=== PATIENT | female | born 1960 | race African-American/Black ===

== ENCOUNTER 2017-08-29 08:15 | Emergency (ER) | payer OTHER ==
[~2017-08-29] VITALS: Ht 165.1 cm; Wt 63.5 kg
--- NOTE | ~2017-08-29 | EKG ---
[address] [place] [address] ELECTROCARDIOGRAM REPORT Name: KRISTIE KRAUS Room #: [facility] Eastman#: [id number] Admission: 08/29/17 Attend Phys: Discharge: 08/29/17 Date of : 60 Report #: [id number] THIS REPORT FOR: //name// [facility] ED Test Date: 2017-08-29 Test Time: 09:47:35 Pat Name: KRISTIE KRAUS Department: Room: Gender: F [employer] Cl[employer]: lizzy : 1960 Requested By: Geraldine Herrera Order Number: [id number] MD: Edenilson Hernandez Measurements Intervals [place] Rate: 69 P: 58 WY: 136 QRS: 9 QRSD: 75 T: 33 QT: 410 QTc: 440 Interpretive Statements Sinus rhythm Left ventricular hypertrophy Minimal ST elevation, anterolateral leads Baseline wander in lead(s) II,III,aVF Compared to ECG 02/11/2012 18:28:06 Left ventricular hypertrophy now present ST (T wave) deviation now present Electronically Signed On 08-29-2017 14:12:20 CDT by Edenilson Hernandez [email or web address] <ELECTRONICALLY SIGNED> By: Edenilson Hernandez MD 08/29/17 1412 0947 Edenilson Hernandez MD /EPI
[~2017-08-29 08:15] MED LIST: ACETAMINOPHEN-1 EAC1 PO; ARIMIDEX PO; ASPIR 8181 MG PO; AVELOX 400 MG400 MG PO; BACLOFEN 10MG T10 M1 PO; BACLOFEN20 MG PO; CALCIUM 500 +1 EAC5 PO; DOXYCYCLINE 10100 MG PO; HYDROCODON-ACE1 EAC7 PO; HYDROCODONE-AP1 EAC6 PO; IBUPROFEN 200200 M1 PO; IBUPROFEN 800800 M1 PO; KEFLEX500 M1 PO; LEVAQUIN 500 M500 M2 PO; NAPROSYN500 MG PO; NORCO 5-325 TA1 EACH PO; ONDANSETRON HCL4 M2 PO; PRAVASTATIN SOD10 MG PO; PREDNISONE 5 MG5 M1 PO; SENNA S TABLET1 EACH PO; TAMIFLU PO; TOPROL XL25 MG PO; VITAMIN B-122500 MCG PO; WELLBUTRIN SR150 MG PO
== END 2017-08-29 10:40 | disposition home or self-care (01) ==
LOC: ER 08:15
DX: S46.911A Strain of unspecified muscle, fascia and tendon at shoulder and upper arm level, right arm, initial encounter (principal); D86.9 Sarcoidosis, unspecified; F32.9 Major depressive disorder, single episode, unspecified; F41.9 Anxiety disorder, unspecified; G62.9 Polyneuropathy, unspecified; Z85.3 Personal history of malignant neoplasm of breast; Z88.5 Allergy status to narcotic agent; Z88.1 Allergy status to other antibiotic agents; Z88.8 Allergy status to other drugs, medicaments and biological substances; V89.2XXA Person injured in unspecified motor-vehicle accident, traffic, initial encounter; Y93.89 Activity, other specified; Y92.89 Other specified places as the place of occurrence of the external cause; Y99.8 Other external cause status

== ENCOUNTER 2018-04-06 16:40 | Emergency (ER) | payer OTHER ==
[~2018-04-06] VITALS: Ht 165.1 cm; Wt 65.3 kg
[2018-04-06] MEDS ORDERED: HYDROCODONE-AP1 EAC6 PO (17:12)
== END 2018-04-06 17:55 | disposition home or self-care (01) ==
LOC: ER 16:40
DX: S16.1XXA Strain of muscle, fascia and tendon at neck level, initial encounter (principal); M25.511 Pain in right shoulder; F32.9 Major depressive disorder, single episode, unspecified; F41.9 Anxiety disorder, unspecified; Z88.1 Allergy status to other antibiotic agents; Z88.5 Allergy status to narcotic agent; V89.2XXA Person injured in unspecified motor-vehicle accident, traffic, initial encounter; Y93.89 Activity, other specified; Y92.89 Other specified places as the place of occurrence of the external cause; Y99.8 Other external cause status

== ENCOUNTER 2018-12-25 09:14 | Inpatient (IN) | payer OTHER ==
[~2018-12-25] VITALS: Ht 165.1 cm; Wt 65.3 kg
[2018-12-25 09:54] VITALS: BP 125/83
[2018-12-25 11:06] LABS: HEMATOCRIT 42.1 % (37.0-47.0); HEMOGLOBIN 13.9 gm/dL (12.0-15.0); MCH 28.5 pg (26.0-34.0); MCHC 33.2 g/dL (28.0-37.0); RBC 4.89 mil/uL (4.20-5.00); RDW 14.9 % (10.5-14.5); WBC 7.2 thou/uL (4.0-11.0)
[2018-12-25 11:22] LABS: ALBUMIN 3.8 g/dL (3.4-5.0); CALCIUM 10.2 mg/dL (8.5-10.1); CREATININE 0.8 mg/dL (0.6-1.0); POTASSIUM 3.8 mmol/L (3.5-5.1); TOTAL BILIRUBIN 0.7 mg/dL (<0.1-1.0); TOTAL PROTEIN 8.7 g/dL (6.4-8.2)
[2018-12-25 13:13] VITALS: BP 110/67
--- NOTE | 2018-12-25 13:30 | NUR ---
Rapid response activated-see flowsheet
--- NOTE | 2018-12-25 14:19 | NUR ---
HYDROCODONE 5 MG PO ADMINISTERED FOR HEADACHE PAIN, RATED 10. PREVIOUSLY, AT ABOUT 1300, PATIENT C/O CHEST PAIN. EKG, AND RAPID RESPONSE TEAM RESPONDED TO PATIENT'S ROOM. AFTER ASSESSMENT AND DR. MCDANIEL, CONTACTED BY PHONE, ASSESSMENT IS THAT MORE THAN LIKELY PAIN CAUSED FROM PULMONARY PAIN. EKG SINUS TACHYCARDIA.
[2018-12-25 15:34] VITALS: BP 110/69
--- NOTE | 2018-12-25 15:58 | EKG ---
[address] [address] ELECTROCARDIOGRAM REPORT Name: KRISTIE KRAUS Room #: 430-P ADM IN M.R.#: [id number] ������������������ Admission: 12/25/18 ������������������ Attend Phys: Ross rIene MD Discharge: ������������������ Date of : 60 Report #: [id number] ����������������������������������������������������������������� [id number] THIS REPORT FOR: //name// [facility] Test Date: 2018-12-25 Test Time: 13:19:37 Pat Name: KRISTIE KRAUS Department: Room: 430 P Gender: F Ophthalmic Assistant: Twyla TRAN : 1960 Requested By: Ross Irene Order Number: [id number] MD: Edenilson Hernandez Measurements Intervals [place] Rate: 122 P: 73 MD: 123 QRS: 13 QRSD: 73 T: 60 QT: 310 QTc: 442 Interpretive Statements Sinus tachycardia Consider left ventricular hypertrophy Compared to ECG 08/29/2017 09:47:35 Sinus rhythm no longer present ST (T wave) deviation no longer present Electronically Signed On 12-25-2018 15:58:07 METAL TESTER by Edenilson Hernandez [email or web address] ��������������������������������������������� <ELECTRONICALLY SIGNED> ���������������������������������������� By: Edenilson Hernandez MD ��������������������������������������������� 12/25/18 1558 1319 1319 Edenilson Hernandez MD /EPI
--- NOTE | 2018-12-25 17:09 | NUR ---
PT ADMITTED RELATED TO PNEUMONIA. CM REVIEWED CHART AND SPOKE WITH CARE TEAM. CM MET WITH PT AT BEDSIDE THIS DAY. PT IS A&O X4. CM ROLE INTRODUCED. PT INDICATED SHE LIVES ALONE IN AN APARMTETN WITH 1 STEPS TO ENTER AND NO STEPS INSIDE. 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 PT INDICATED SHE ANTICAPTES RETURNING HOME ONCE MEDICALLY STABLE. CM TO FOLLOW INDICATED WITH DC PLANNING.
--- NOTE | 2018-12-25 19:29 | NUR ---
PATIENT ADMITTED DIRECT ADMIT PER DR. MCDANIEL AT 0900 THIS A.M. FOR PNEUMONIA, FLUE-LIKE SYMPTOMS. ELEVATED TEMP, HEADACHE. ADMINISTERED IBUPROFEN 200 MG PO WITHOUT RELIEF; AT 1000, ADMINISTERED HYDROCODONE PER DR. MCDANIEL'S ORDER; PAIN MEDICATION SUCCESSFUL. PATIENT'S TEMP DECREASED TO 99.1 MID-AFTERNOON. CONTINUE TO MONITOR.
[2018-12-25 21:55] VITALS: BP 107/68
[2018-12-26 03:50] VITALS: BP 109/70
--- NOTE | 2018-12-26 06:34 | NUR ---
PT UP WITH SBA. APPEARS WEAK. WEAK COUGH-SLIGHT PAIN WITH DEEP INSPIRATION. TMAX OF 99.7.DENIES NAUSEA AND VOMITING.NO FURTHER CONCERNS.
[2018-12-26 08:08] VITALS: BP 105/63
--- NOTE | 2018-12-26 10:34 | NUR ---
GAVE REPORT TO MYRNA IN [facility] PATIENT IS TRANSFERRING TO ROOM 225.
--- NOTE | 2018-12-26 11:49 | NUR ---
RECEIVED PT FROM . PT ALERT/ORIENTED X4, PLEASANT. VITAL SIGNS OBTAINED AND FOUND TO BE WNL. PT DENIES PAIN AT THIS TIME. REPORTS VERY LITTLE SHORTNESS OF BREATH. ALSO REPORTS LITTLE SPUTUM PRODUCTION. PT IS ON ROOM AIR. IV INFUSING TO RIGHT FOREARM. IV IS ASYMPTOMATIC. WILL CONTINUE WITH CURRENT CARE.
[2018-12-26 11:50] VITALS: BP 106/70
--- NOTE | 2018-12-26 18:00 | NUR ---
PT DOING WELL. NO RESP. DISTRESS NOTED. PT REMAINS ON ROOM AIR. NEW IV SITE PLACED DUE TO FOREARM IV CONTINUEING TO OCCLUDE. FAMILY AND FRIENDS AT BEDSIDE. NO NEW CONCERNS OR COMPLAINTS. WILL CONTINUE CURRENT CARE.
[2018-12-26 19:20] VITALS: BP 120/69
[2018-12-26 22:17] VITALS: BP 120/69
--- NOTE | 2018-12-27 03:28 | NUR ---
Patient remains A&Ox4; Swallows meds whole w/o difficulty. Remains cont. B&B; Ambulates w/ stand by asst. only; gait steady. Abd. soft/nontender; no c/o N/V. IV noted to R hand; infusing fluids/steroids w/o difficulty. Patient denies pain or discomfort, at this time. No s/s of acute distress noted. PO fluids encouraged. Patient awake in bed w/ call light/desired belongings within reach. PO fluids encouraged. Will continue to monitor.
[2018-12-27 08:32] VITALS: BP 128/82
[2018-12-27 10:18] VITALS: BP 128/82
--- NOTE | 2018-12-27 10:27 | NUR ---
SW reviewed chart and spoke with nursing. Pt was transferred to [facility] from and is progressing towards goals for discharge. Pt remains on IV abx and IVF. Plan is for pt to discharge home when medically stable. CHRISTINE is following to assist as needed with discharge planning.
[2018-12-27] MEDS ORDERED: LEVAQUIN 500 M500 M2 PO (11:37)
[2018-12-27 12:34] VITALS: BP 128/82
--- NOTE | 2018-12-27 13:36 | NUR ---
I AGREE WITH NURSING ASSESSMENT DONE BY EMMETT/SURI.
--- NOTE | 2018-12-27 13:50 | NUR ---
ASSUMED CARE OF PATIENT THIS MORNING. PATIENT IS A&OX4. SHE WAS ASSESSED THIS MORNING, NO ABNORMAL ASSESSMENT FINDINGS. VITAL SIGNS WERE STABLE. PATIENT RECEIVES Q4H BREATHING TREATMENTS. SHE GETS UP WITH STANDBY ASSISTANCE. SHE DOES NOT COMPLAIN OF ANY PAIN. PATIENT WILL BE DISCHARGED THIS AFTERNOON HOME WITH SELF CARE AND WILL FOLLOW UP WITH HER PCP ON 01/02/19. PATIENT RECEIVED 3 PRESCRIPTIONS AND DISCHARGE INSTRUCTIONS WERE REVIEWED WITH PATIENT AND SHE SIGNED THE SIGNATURE DISCLAIMER PAGE. PATIENT'S IV WAS REMOVED. SHE IS CURRENTLY SITTING IN HER ROOM AWAITING FOR HER RIDE FOR DISCHARGE. PATIENT CALLS OUT APPROPRIATELY FOR ASSISTANCE AND HER CALL LIGHT IS WITHIN REACH.
== END 2018-12-27 14:27 | disposition home or self-care (01) | DRG 871 ==
LOC: 4E 09:14 → SICU 09:14 → ENTRNSPT 12-26 10:58 → EDTRNSPTSTS 12-26 11:06 → EDTRNSPT 12-27 14:17 → EDTRNSPTTYP 12-27 14:19 → SICU 12-27 14:27
PROVIDERS: ADMIT Family Medicine
DX: A41.9 Sepsis, unspecified organism (principal); J18.9 Pneumonia, unspecified organism; D86.9 Sarcoidosis, unspecified; Z88.1 Allergy status to other antibiotic agents; Z88.5 Allergy status to narcotic agent; Z91.048 Other nonmedicinal substance allergy status; Z90.49 Acquired absence of other specified parts of digestive tract; Z85.3 Personal history of malignant neoplasm of breast
CPT/HCPCS: 10783; 15002

== ENCOUNTER → 2019-05-15 | Outpatient (CLI) | payer OTHER | LOC: RAD 09:42 | DX: M25.511 Pain in right shoulder (principal); R07.89 Other chest pain ==

== ENCOUNTER 2019-06-05 13:31 | Inpatient (IN) | payer OTHER ==
[~2019-06-05] VITALS: Ht 165.1 cm; Wt 63.0 kg
[2019-06-05 13:31] VITALS: BP 118/77
[2019-06-05 14:04] LABS: URINE BILIRUBIN NEGATIVE (Negative); URINE BLOOD 3+ (Negative); URINE CLARITY CLEAR; URINE COLOR YELLOW; URINE GLUCOSE-RANDOM* NEGATIVE (Negative); URINE KETONES TRACE (Negative); URINE PROTEIN (DIPSTICK) 2+ (Negative)
[2019-06-05 14:12] LABS: CRYSTALS None Seen /LPF (None Seen); SQUAMOUS None Seen /LPF (0-3)
[2019-06-05 14:15] LABS: ABSOLUTE NEUTROPHILS 12.1 thou/uL (1.4-8.2); BASOPHILS 0.4 % (0.0-2.0); EOSINOPHILS 0.1 % (0.0-3.0); HEMOGLOBIN 12.7 gm/dL (12.0-15.0); LYMPHOCYTES 4.3 % (24.0-44.0); MCH 28.4 pg (26.0-34.0); MCHC 33.6 g/dL (28.0-37.0); MCV 84.5 fL (80.0-100.0); MONOCYTES 7.3 % (1.0-8.0); PLATELET COUNT 242 thou/uL (150-400); POLYS 87.9 % (36.0-66.0); RBC 4.49 mil/uL (4.20-5.00); RDW 14.3 % (10.5-14.5); WBC 13.7 thou/uL (4.0-11.0)
[2019-06-05 14:23] LABS: CREATININE 0.8 mg/dL (0.6-1.0); POTASSIUM 3.4 mmol/L (3.5-5.1)
[2019-06-05 14:24] LABS: BACTERIA-REFLEX 1-9 Few /HPF (None Seen); URINE LEUKOCYTES-REFLEX 3+ (Negative); URINE NITRITE-REFLEX NEGATIVE (Negative); URINE WBC-REFLEX >25 Many /HPF (0-5)
[2019-06-05 14:29] LABS: ALBUMIN 3.3 g/dL (3.4-5.0); TOTAL BILIRUBIN 1.1 mg/dL (<0.1-1.0); TOTAL PROTEIN 8.7 g/dL (6.4-8.2)
[2019-06-05 15:10] LABS: CALCIUM 9.1 mg/dL (8.5-10.1); CREATININE 0.8 mg/dL (0.6-1.0); POTASSIUM 3.3 mmol/L (3.5-5.1)
[2019-06-05 15:16] LABS: ALBUMIN 2.9 g/dL (3.4-5.0); DIRECT BILIRUBIN 0.2 mg/dL (<0.1-0.3); TOTAL BILIRUBIN 0.9 mg/dL (<0.1-1.0); TOTAL PROTEIN 7.6 g/dL (6.4-8.2)
[2019-06-05 16:14] VITALS: BP 119/74
[2019-06-05 16:40] VITALS: BP 117/77
[2019-06-05 17:20] VITALS: BP 124/75
--- NOTE | 2019-06-05 18:22 | NUR ---
58 YO FEMALE ADMITTED BY CART FROM ER. A&OX4, IV INTACT IN L HAND INFUSING NS. TEMP 102.4. VSS. PT VOIDING PER BSC, PT FEELS PRESSURE/PAIN UPON VOIDING. PT GIVEN HYDROCODONE FOR PAIN, WILL GIVE ANTIBIOTIC WHEN IT ARRIVES. ORIENTES PT TO ROOM/CALL LIGHT.
[2019-06-05 20:35] VITALS: BP 96/64
[2019-06-06 04:34] VITALS: BP 101/60
--- NOTE | 2019-06-06 06:32 | NUR ---
ASSUMED CARE OF PT @1900 PT A&OX4 WITH C/O OF ROSALES. PAIN MEDS GIVEN AND FLUIDS INFUSING. PT UP WITH SBA TO BEDSIDE COMMODE. POC DONE AND VSS WILL CONTINUE TO MONITOR TILL EOS
[2019-06-06 07:37] VITALS: BP 101/66
--- NOTE | 2019-06-06 12:51 | NUR ---
ASSESSMENT-PT LIVES IN A HOUSE ALONE. SHE HAS 3 CHILDREN IN THE AREA- A DTR AND 2 SONS AND 6 GRANDCHILDREN. PT IS NORMALLY INDEPENDENT BUT WHEN FEELING BAD SHE HAS A CANE OR A WALKER TO GET AROUND. 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 PT GIVEN INFO ON [employer] & MY NAME & NUMBER LEFT WITH HER IF SHE WISHES TO COMPLETE IT. PT HAS 1 STEP TO ENTER THE HOME & ABOUT 8 WITH A RAIL DOWN TO WHERE LAUNDRY ID LOCATED. BEDROOM ON MAIN LEVEL. PT VOICES NO CONCERNS RELATED TO DC AT THIS TIME.
[2019-06-06 16:41] VITALS: BP 107/71
--- NOTE | 2019-06-06 19:41 | NUR ---
Assumed care of pt at 0700. Pt a&ox4. SBA. No c/o pain. Vital signs stable. Pt calls appropriately. Will continue to monitor.
[2019-06-06 19:55] VITALS: BP 115/64
[2019-06-07 03:40] VITALS: BP 114/62
--- NOTE | 2019-06-07 03:41 | NUR ---
ASSUMED CARE OF PT @1900 PT A&OX4 AT THIS SHIFT. UP WITH SBA TO THE BATHROOM. C/O HEADACHE, MEDS GIVEN FOR MANAGEMENT SEE EMAR. FLUIDS INFUSING AND POC DONE. WILL CONTINUE TO MONITOR TILL EOS
[2019-06-07 04:30] VITALS: BP 123/57
[2019-06-07 04:59] LABS: ABSOLUTE NEUTROPHILS 4.3 thou/uL (1.4-8.2); BASOPHILS 0.8 % (0.0-2.0); EOSINOPHILS 1.1 % (0.0-3.0); HEMATOCRIT 31.2 % (37.0-47.0); MCH 28.5 pg (26.0-34.0); MCHC 33.2 g/dL (28.0-37.0); MCV 85.8 fL (80.0-100.0); MONOCYTES 11.1 % (1.0-8.0); PLATELET COUNT 247 thou/uL (150-400); RBC 3.64 mil/uL (4.20-5.00); RDW 14.2 % (10.5-14.5); WBC 6.5 thou/uL (4.0-11.0)
[2019-06-07 05:11] LABS: CALCIUM 9.1 mg/dL (8.5-10.1); CREATININE 0.7 mg/dL (0.6-1.0); POTASSIUM 3.3 mmol/L (3.5-5.1)
[2019-06-07 05:30] LABS: HEMOGLOBIN 10.4 gm/dL (12.0-15.0)
[2019-06-07 07:50] VITALS: BP 108/67
[2019-06-07] MEDS ORDERED: KEFLEX500 M1 PO (09:21)
[2019-06-07 12:47] VITALS: BP 108/67
--- NOTE | 2019-06-07 14:12 | NUR ---
Assumed care of pt at 0700. Pt alert and oriented x4. SBA with walker. Pain controlled. No other c/o at this time. Pt discharfed to home.
== END 2019-06-07 13:30 | disposition home or self-care (01) | DRG 871 ==
LOC: ER 13:31 → EROBS 15:43 → 4E 15:43 → ENTRNSPT 06-07 13:23 → 4E 06-07 13:30 → EDTRNSPTSTS 06-07 13:36
PROVIDERS: Emergency Medicine; Nurse Practitioner; ADMIT Hospitalist
DX: A41.9 Sepsis, unspecified organism (principal); E43 Unspecified severe protein-calorie malnutrition; N12 Tubulo-interstitial nephritis, not specified as acute or chronic; E87.6 Hypokalemia; Z85.3 Personal history of malignant neoplasm of breast; Z90.49 Acquired absence of other specified parts of digestive tract; Z88.6 Allergy status to analgesic agent; Z88.1 Allergy status to other antibiotic agents; Z79.82 Long term (current) use of aspirin; Z79.899 Other long term (current) drug therapy
CPT/HCPCS: 10084

== ENCOUNTER 2019-07-23 16:01 | Inpatient (IN) | payer OTHER ==
[~2019-07-23] VITALS: Ht 165.1 cm; Wt 61.2 kg
[2019-07-23 16:02] VITALS: BP 101/66
[2019-07-23 16:21] LABS: URINE BILIRUBIN NEGATIVE (Negative); URINE BLOOD 1+ (Negative); URINE CLARITY CLEAR; URINE COLOR YELLOW; URINE GLUCOSE-RANDOM* NEGATIVE (Negative); URINE KETONES NEGATIVE (Negative); URINE LEUKOCYTES 1+ (Negative); URINE NITRITE POSITIVE (Negative); URINE PROTEIN (DIPSTICK) NEGATIVE (Negative); URINE SPECIFIC GRAVITY 1.015 (1.005-1.035)
[2019-07-23 16:36] LABS: CASTS None Seen /LPF (None Seen); SQUAMOUS 0-3 Few /LPF (0-3)
[2019-07-23 16:37] LABS: BACTERIA >30 Many /HPF (None Seen); CRYSTALS None Seen /LPF (None Seen); URINE RBC 0-2 Rare /HPF (0-2); URINE WBC >25 Many /HPF (0-5)
[2019-07-23 16:41] LABS: ABSOLUTE NEUTROPHILS 4.3 thou/uL (1.4-8.2); BASOPHILS 0.9 % (0.0-2.0); EOSINOPHILS 0.3 % (0.0-3.0); HEMATOCRIT 37.1 % (37.0-47.0); HEMOGLOBIN 12.1 gm/dL (12.0-15.0); LYMPHOCYTES 21.7 % (24.0-44.0); MCH 27.6 pg (26.0-34.0); MCHC 32.5 g/dL (28.0-37.0); MCV 84.9 fL (80.0-100.0); PLATELET COUNT 314 thou/uL (150-400); POLYS 67.1 % (36.0-66.0); RBC 4.37 mil/uL (4.20-5.00); RDW 14.4 % (10.5-14.5); WBC 6.4 thou/uL (4.0-11.0)
[2019-07-23 16:48] LABS: CREATININE 0.8 mg/dL (0.6-1.0)
[2019-07-23 16:55] LABS: ALBUMIN 3.3 g/dL (3.4-5.0); TOTAL BILIRUBIN 0.5 mg/dL (<0.1-1.0); TOTAL PROTEIN 8.6 g/dL (6.4-8.2)
--- NOTE | 2019-07-23 17:00 | NUR ---
ED NURSE CALLED LAB SPOKE WITH [facility]UNG WHO STATED THEY HAVE THE LACTIC AND BLOOD CULTURES READY TO RUN
[2019-07-23 20:04] VITALS: BP 117/75
--- NOTE | 2019-07-23 20:25 | NUR ---
NEW PT NEW PT ARRIVED UNIT AROUND 2014 FROM THE ED. PT A&OX4.PT GETS UP WITH STANDBY AND A CANE. MEDICATIONS VERIFIED. DR MCDANIEL WAS CALLED FOR SOME ORDERS. PT IS ON A CHEMO PILL (ANASTROZOLE) FOR BREAST CA. FALL PREC IN PLACE, CALL LIGHT WITHIN REACH. NO S/S OF DISTRESS. WILL CONT TO MONITOR
[2019-07-23 20:30] VITALS: BP 114/68
[2019-07-23] MEDS ORDERED: CYMBALTA30 MG PO (22:38)
[2019-07-23] MEDS ORDERED: DULOXETINE HCL30 MG PO (22:41)
[2019-07-23 23:37] VITALS: BP 114/62
[2019-07-24 05:20] VITALS: BP 110/66
[2019-07-24 07:52] VITALS: BP 105/63
[2019-07-24 15:45] VITALS: BP 110/62
--- NOTE | 2019-07-24 15:58 | NUR ---
PT ADMITTED RELATED TO PHYLONEPHRITIS. CM REVIEWED CHART AND SPOKE WITH CARE TEAM. CM MET WITH PT AT BEDSIDE THIS DAY. PT IS A&O X4. CM ROLE INTRODUCED. PT INDICATED THAT SHE LIVES ALONE IN A HOUSE WITH 6 STEPS TO ENTER AND 8 STEPS INSIDE. 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 PT INDICATED SHE DOESN'T ANTICIPATE ANY NEEDS UPON DC. CM TO FOLLOW INIDCATED WITH DC PLANNING.
--- NOTE | 2019-07-24 18:22 | NUR ---
Assumed patient care at 0715. Patient complained of "level four" pain to right upper quadrant of abdomen at to right arm early this am, did not want anything for pain (takes Baclofen scheduled which is noted to be helpful). Vital signs have been stable, ABD soft et non-tender, BS x's 4, skin is clean, warm, dry et intact. Patient complained of "dizzyness et nausea" at 1630. Received TO from Dr Emily Zeng for Zofran 4mg IV q 4 hours. Medication "helpful." Will continue to monitor.
[2019-07-24 20:30] VITALS: BP 111/61
--- NOTE | 2019-07-25 03:40 | NUR ---
assumed care @1900. pt a&ox4. new order of scopolamine patch and hydroxyzine was ordered because pt stated that zofran didnt help with her nausea. fall prec still in place. pt rings approp. call martines within reach. no s/s of distress. will cont to monitor
[2019-07-25 07:51] VITALS: BP 105/65
[2019-07-25 08:22] VITALS: BP 116/79
[2019-07-25 09:12] LABS: HEMATOCRIT 37.1 % (37.0-47.0); HEMOGLOBIN 12.1 gm/dL (12.0-15.0); MCH 27.9 pg (26.0-34.0); MCHC 32.5 g/dL (28.0-37.0); MCV 85.7 fL (80.0-100.0); RBC 4.33 mil/uL (4.20-5.00); RDW 14.7 % (10.5-14.5); WBC 3.9 thou/uL (4.0-11.0)
[2019-07-25 09:26] LABS: ALBUMIN 3.1 g/dL (3.4-5.0); CALCIUM 10.1 mg/dL (8.5-10.1); CREATININE 0.7 mg/dL (0.6-1.0); POTASSIUM 4.3 mmol/L (3.5-5.1); TOTAL BILIRUBIN 0.2 mg/dL (<0.1-1.0); TOTAL PROTEIN 7.4 g/dL (6.4-8.2)
--- NOTE | 2019-07-25 09:43 | NUR ---
ASSUMED CARE OF PATIENT AT 0715, PATIENT VERY LETHARGIC AND DROWSY, SLIGHTLY CONFUSED, SHE STATES SHE JUST FEELS VERY SLEEPY. VSS DONE 116/79, HR 59, SATS 98% RESP 16 AND TEMP 98.2. THIS RN NOTIFIED DR MCDANIEL, RECEIVED ORDER FOR CBC AND CMP. DR MCDANIEL CAME TO SEE THE PATIENT HE STATES SHE SMAILLED AT HIM, HE WAS NOT CONCERNED, JUST KEEP AN EYE ON HER IF SHE WAKES UP MORE SHE COULD GO HOME. THIS RN HAVE SPOKE TO FAMILY WHO ARE CALLING WITH CONCERN, THIS RN INFORMED THEM OF WHAT DR MCDANIEL SAID AND THAT WE WILL KEEP ANY EYE ON HER, AND WILL CALL THEM IF ANYTHING CHANGES. WILL CONTINUE TO MONITOR.
--- NOTE | 2019-07-25 18:00 | NUR ---
Assumed patient care at 0715. Patient has been very drowsy today, has slept off and on throughout this shift until family came to visit. She was assisted with bathing herself in the bathroom this afternoon. Patient requested and received Ibuprofen 200mg po at 1537 for lower back pain "level two." This was effective, as it lowered her pain down to a level one. Vital signs are stable, LSCTA, ABD soft et non-tender, BS x's 4, skin is clean, warm, dry and intact. Patient continues to need stand by assist due to weakness. New order received from Dr Shah for Miralax. Miralax given late this afternoon. No results as of this time. Will continue to monitor.
[2019-07-25 20:53] VITALS: BP 109/64
--- NOTE | 2019-07-26 03:48 | NUR ---
assumed care of pt @1900. pt a&ox4. pt slightly drowsy. pt had recieved a dose of hydroxyzine 25mg and a scopolamine patch on the night of 07/24. pt stated that the patch could be what was making her drowsy. this nurse took the patch out. checked in on pt a few hours later and pt stated that she feels better and was able to stay awake for almost 3hrs on the phone with her girlfriend. pt ambulates with standby assist to the bathroom using a walker. pt has a steady gait but has some weakness due to a diagnosis of neurosarcodosis. fall prec in place. call martines within reach. no s/s of distress. will cont to monitor
[2019-07-26 08:25] VITALS: BP 119/80
[2019-07-26] MEDS ORDERED: CEFDINIR300 MG PO (10:47)
[2019-07-26 15:23] VITALS: BP 119/80
--- NOTE | 2019-07-26 16:14 | NUR ---
CARE TEAM INDICATED THAT PT IS MEDICALLY STABLE TO DC HOME THIS DAY WITH NO NEEDS. NO OTHER CM INTERVENTION INDICATED. CASE CLOSED.
--- NOTE | 2019-07-26 18:52 | NUR ---
ASSUMED CARE OF PATIENT AT 0715, PATIENT ALERT AND ORIENTED X 4. PATIENT UP WITH SBA WITH WALKER. PATIENT DENIES PAIN THIS SHIFT. PATIENT HAD RIGHT FOREARM IV IN PLACE, RECEIVED IV ANTIBIOTIC PRIOR TO DISCHARGE. RIGHT FOREARM IV REMOVED PRIOR TO DISCHARGE. DR MCDANIEL HERE THIS AM, PATIENT WILL DISCHARGE TO HOME, HE CALLED ANTIBIOTIC TO PHARMACY X 7 DAYS. INFO SHEET GIVEN FOR ANTIBIOTIC. PATIENT C/O NAUSEA TODAY, ZOFRAN 4 MG IV GIVEN WITH GOOD RELIEF. ALL DISCHARGE PAPERWORK AND ALL PERSONAL BELONGINGS SENT WITH THE PATIENT. SISTERS AT BEDSIDE FOR TRANSPORT TO HOME.
== END 2019-07-26 17:43 | disposition home or self-care (01) | DRG 690 ==
LOC: ER 16:01 → EROBS 18:02 → 4S 18:02 → ENTRNSPT 07-26 16:47 → 4S 07-26 17:43
PROVIDERS: Emergency Medicine; ADMIT Family Medicine
DX: N12 Tubulo-interstitial nephritis, not specified as acute or chronic (principal); E44.0 Moderate protein-calorie malnutrition; D86.9 Sarcoidosis, unspecified; Z90.49 Acquired absence of other specified parts of digestive tract; Z88.6 Allergy status to analgesic agent; Z88.8 Allergy status to other drugs, medicaments and biological substances; Z68.22 Body mass index [BMI] 22.0-22.9, adult; Z79.899 Other long term (current) drug therapy
CPT/HCPCS: 10195

== ENCOUNTER 2019-10-13 23:34 | Emergency (ER) | payer OTHER ==
[~2019-10-13] VITALS: Ht 165.1 cm; Wt 65.3 kg
[~2019-10-13 23:34] MED LIST changes: +CEFDINIR300 MG PO; +CYMBALTA30 MG PO; +DULOXETINE HCL30 MG PO
[2019-10-14 00:14] LABS: HEMATOCRIT 38.8 % (37.0-47.0); HEMOGLOBIN 12.7 gm/dL (12.0-15.0); MCH 28.1 pg (26.0-34.0); MCHC 32.6 g/dL (28.0-37.0); PLATELET COUNT 218 thou/uL (150-400); RBC 4.51 mil/uL (4.20-5.00); RDW 15.1 % (10.5-14.5); WBC 5.2 thou/uL (4.0-11.0)
[2019-10-14 00:21] LABS: ANION GAP 11 mmol/L (7-16); BUN 8 mg/dL (7-18); CALCIUM 9.5 mg/dL (8.5-10.1); CHLORIDE 103 mmol/L (98-107); CO2 24 mmol/L (21-32); CREATININE 0.8 mg/dL (0.6-1.0); GLUCOSE 119 mg/dL (74-106); POTASSIUM 3.8 mmol/L (3.5-5.1); SODIUM 138 mmol/L (136-145)
[2019-10-14 00:29] LABS: TROPONIN-I <0.06 ng/mL (<0.06)
[2019-10-14] MEDS ORDERED: TAMIFLU75 MG PO (00:59)
[2019-10-14 01:19] VITALS: BP 142/88
[2019-10-14 01:26] LABS: ABSOLUTE NEUTROPHILS 3.6 thou/uL (1.4-8.2)
--- NOTE | 2019-10-14 10:30 | EKG ---
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 : 1960 Requested By: Trey Chen Order Number: [id number] MD: Pablo Saldana Measurements Intervals [place] Rate: 109 P: 63 MT: 125 QRS: 11 QRSD: 74 T: 48 QT: 317 QTc: 427 Interpretive Statements Sinus tachycardia Probable left atrial enlargement Left ventricular hypertrophy Compared to ECG 12/25/2018 13:19:37 No significant changes Electronically Signed On 10-14-2019 10:30:15 SPINNING BATH PERSON by Pablo Saldana [email or web address] <ELECTRONICALLY SIGNED> By: Pablo Saldana MD 10/14/19 1030 [id number] [id number] Pablo Saldana MD /TRIP
== END 2019-10-14 01:20 | disposition home or self-care (01) ==
LOC: ER 23:34
PROVIDERS: Emergency Medicine
DX: J10.1 Influenza due to other identified influenza virus with other respiratory manifestations (principal); Z85.3 Personal history of malignant neoplasm of breast; Z90.49 Acquired absence of other specified parts of digestive tract; Z90.10 Acquired absence of unspecified breast and nipple; Z91.048 Other nonmedicinal substance allergy status; Z88.1 Allergy status to other antibiotic agents; Z88.6 Allergy status to analgesic agent